=== PATIENT | female | born 1940 | race Caucasian/White ===

== ENCOUNTER 2017-10-10 15:05 | Outpatient (CLI) | payer MEDICARE, BC | END 2017-10-10 15:06 | disposition home or self-care (01) | LOC: BICMAMMO 15:05 | PROVIDERS: ATTEND Family Medicine | DX: Z12.31 Encounter for screening mammogram for malignant neoplasm of breast (principal); R92.1 Mammographic calcification found on diagnostic imaging of breast; Z80.3 Family history of malignant neoplasm of breast | CPT/HCPCS: 77063; 77067 ==

== ENCOUNTER 2018-01-30 15:20 | Outpatient (CLI) | payer MEDICARE, BC ==
--- NOTE | 2018-01-30 15:45 | RAD ---
FIVE VIEWS CERVICAL SPINE: DATE: 01/30/18. HISTORY: Neck pain, cervical strain. COMPARISON: None available. FINDINGS: C1 to the cervicothoracic junction is seen on the lateral view. Vertebral body heights are within no rmal limits. There is narrowing of the intervertebral disk spaces at the C4-5, C5-6, and C6-7 levels with osteophytes also present at these levels. There does appear to be trace retrolisthesis of C5 o n C6 which does not change, and the degree of retrolisthesis does not change between the flexion and extension views. No fracture is seen. The prevertebral soft tissues are within normal limits. IMPRESSION: Degenerative changes in the cervical spine including trace retrolisthesis of C5 on C6. POS: [facility]
--- NOTE | 2018-01-30 16:33 | MRI ---
MRI CERVICAL SPINE NONCONTRAST 01/30/18 HISTORY: Neck pain. FINDINGS: Vertebral body heights and alignment are maintained. There is desiccation of all the intervertebral d iscs and mild discogenic end plate changes within the bone marrow. C2-3, C3-4: Central canal and neural foramina are patent. C4-5: Mild posterior osteophyte/disc complex with mild stenosis of the central canal. Moderate right foraminal stenosis. C5-6: Very mild posterior osteophyte/disc complex with mild stenosis of the central canal. Moderate r ight foraminal stenosis. C6-7: Central canal is patent. Mild to moderate left foraminal stenosis. C7-T1: Central canal and neural foramina are patent. IMPRESSION: Mild to moderate degenerative changes throughout the cervical spine with central canal and foraminal stenoses as detailed above. No evidence of myelomalacia. POS: [facility]
== END 2018-01-30 15:21 | disposition home or self-care (01) ==
LOC: TBSIIMAG 15:20
PROVIDERS: ATTEND Physician Assistant Surgical
DX: S16.1XXA Strain of muscle, fascia and tendon at neck level, initial encounter (principal); M47.892 Other spondylosis, cervical region; M48.02 Spinal stenosis, cervical region; M99.81 Other biomechanical lesions of cervical region
CPT/HCPCS: 72050; 72141